=== PATIENT | male | born 1995 | race Hispanic/Latino ===

== ENCOUNTER 2017-09-01 22:15 | Observation (INO) | payer OTHER, SELFPAY ==
[2017-09-01 22:56] LABS: Absolute Lymphocytes (CBC) 3.2 K/uL (0.7-4.9); Absolute Monocytes 0.5 K/uL (0.1-1.3); Absolute Neutrophil 4.2 K/uL (1.8-8.0); Basophils % 0.4 % (0-1.3); Eosinophils % 3.4 % (0-4.4); Hematocrit 46.7 % (39.6-49.0); MCV 82.9 fL (80-100); MPV 7.7 fL (7.6-11.3); Monocytes % 6.1 % (3.3-12.3); RBC Red Blood Cell Count 5.64 M/uL (4.33-5.43)
[2017-09-01] MEDS ORDERED: ASPIRIN 81 MG CHEWABLE TABLET ONE (23:00)
[2017-09-01 23:03] LABS: Bicarbonate 26 mEq/L (21-31); Glucose Level 122 mg/dL (65-120); Potassium 3.4 mEq/L (3.6-5.0); Sodium Level 141 mEq/L (135-145)
[2017-09-01 23:09] LABS: ALT/SGPT 38 IU/L (10-60); AST/SGOT 25 IU/L (10-42); Albumin 4.9 g/dL (3.2-5.5); Alkaline Phosphatase 78 IU/L (42-121); BUN Blood Urea Nitrogen 13 mg/dL (6-20); Bilirubin Direct < 0.1 mg/dL (0-0.2); Bilirubin Total 0.5 mg/dL (0.3-1.2); Creatine Phosphokinase 119 IU/L (22-269); Glomerular Filtration Rate > 90 mL/min (=/>90); Magnesium 1.9 mg/dL (1.8-2.5); Protein, Total 7.7 g/dL (6.0-8.3)
[2017-09-01 23:12] LABS: CKMB Creatine Kinase MB 1.4 ng/ml (0.3-4.0)
--- NOTE | 2017-09-01 23:15 | EDPHYS ---
Physician Documentation [facility] Name: Yoan Nina Age: 22 yrs Sex: Male : 1995 Arrival Date: 09/01/2017 Time: 22:21 Bed 18 Private MD: Alvaro Hernandez HPI: 09/01 22:33 This 22 yrs old Male presents to ER via Ambulatory with complaints of Chest marcia Pain. 22:33 The patient or guardian reports chest pain that is located primarily in the anterior marcia chest wall, left. The pain does not radiate. Associated signs and symptoms: The patient has no apparent associated signs or symptoms. The chest pain is described as sharp. Duration: The patient or guardian reports multiple episodes, with no pattern. Modifying factors: The symptoms are alleviated by nothing. the symptoms are aggravated by nothing. Severity of pain: At its worst the pain was. The patient has not experienced similar symptoms in the past. Historical: - Allergies: 22:28 NKDA; fc - Home Meds: 22:28 None [Active]; fc - PMHx: 22:28 None; fc - PSHx: 22:28 None; fc - Immunization history:: Last tetanus immunization: unknown, Flu vaccine is not up to date. - Social history:: Smoking status: Patient uses tobacco products, denies chronic smoking, but will smoke occasionally. - Family history:: not pertinent. ROS: 22:33 Constitutional: Negative for fever, chills, and weight loss, Eyes: Negative for injury, marcia pain, redness, and discharge, ENT: Negative for injury, pain, and discharge, Neck: Negative for injury, pain, and swelling, Respiratory: Negative for shortness of breath, cough, wheezing, and pleuritic chest pain, Abdomen/GI: Negative for abdominal pain, nausea, vomiting, diarrhea, and constipation, Back: Negative for injury and pain, : Negative for injury, bleeding, discharge, and swelling, MS/Extremity: Negative for injury and deformity, Skin: Negative for injury, rash, and discoloration, Neuro: Negative for headache, weakness, numbness, tingling, and seizure, Psych: Negative for depression, anxiety, suicide ideation, homicidal ideation, and hallucinations, Allergy/Immunology: Negative for hives, rash, and allergies, Endocrine: Negative for neck swelling, polydipsia, polyuria, polyphagia, and marked weight changes, Hematologic/Lymphatic: Negative for swollen nodes, abnormal bleeding, and unusual bruising. 22:33 Cardiovascular: Positive for chest pain, of the anterior aspect of left upper chest. Exam: 22:33 Constitutional: This is a well developed, well nourished patient who is awake, alert, amrcia and in no acute distress. Head/Face: Normocephalic, atraumatic. Eyes: Pupils equal round and reactive to light, extra-ocular motions intact. Lids and lashes normal. Conjunctiva and sclera are non-icteric and not injected. Cornea within normal limits. Periorbital areas with no swelling, redness, or edema. ENT: Nares patent. No nasal discharge, no septal abnormalities noted. Tympanic membranes are normal and external auditory canals are clear. Oropharynx with no redness, swelling, or masses, exudates, or evidence of obstruction, uvula midline. Mucous membranes moist. Neck: Trachea midline, no thyromegaly or masses palpated, and no cervical lymphadenopathy. Supple, full range of motion without nuchal rigidity, or vertebral point tenderness. No Meningismus. Chest/axilla: Normal chest wall appearance and motion. Nontender with no deformity. No lesions are appreciated. Cardiovascular: Regular rate and rhythm with a normal S1 and S2. No gallops, murmurs, or rubs. Normal PMI, no JVD. No pulse deficits. Respiratory: Lungs have equal breath sounds bilaterally, clear to auscultation and percussion. No rales, rhonchi or wheezes noted. No increased work of breathing, no retractions or nasal flaring. Abdomen/GI: Soft, non-tender, with normal bowel sounds. No distension or tympany. No guarding or rebound. No evidence of tenderness throughout. Back: No spinal tenderness. No costovertebral tenderness. Full range of motion. Male : Normal genitalia with no discharge or lesions. Skin: Warm, dry with normal turgor. Normal color with no rashes, no lesions, and no evidence of cellulitis. MS/ Extremity: Pulses equal, no cyanosis. Neurovascular intact. Full, normal range of motion. Neuro: Awake and alert, GCS 15, oriented to person, place, time, and situation. Cranial nerves II-XII grossly intact. Motor strength 5/5 in all extremities. Sensory grossly intact. Cerebellar exam normal. Normal gait. Psych: Awake, alert, with orientation to person, place and time. Behavior, mood, and affect are within normal limits. 22:35 Musculoskeletal/extremity: DVT Exam: No signs of deep vein thrombosis. no pain, no marcia swelling, no tenderness, negative Homans' sign noted on exam, no appreciated bluish discoloration, no erythema, no increased warmth. Vital Signs: 22:28 Weight 83.91 kg (R); Height 5 ft. 5 in. (165.10 cm) (R); Pain 4/10; fc 22:30 BP 140 / 83; Pulse 93; Resp 16; Temp 98.3; Pulse Ox 100% on R/A; bp 23:04 BP 130 / 87; Pulse 84; Resp 18; Pulse Ox 97% ; bp 09/02 00:04 BP 123 / 74; Pulse 83; Resp 16; Pulse Ox 100% on R/A; Pain 0/10; bs1 01:21 BP 100 / 87; Pulse 70; Resp 16; Pulse Ox 100% on R/A; Pain 0/10; bs1 02:51 BP 114 / 54; Pulse 67; Resp 17; Pulse Ox 100% on R/A; Pain 0/10; bs1 09/01 22:28 Body Mass Index 30.79 (83.91 kg, 165.10 cm) [facility]: 09/01 22:23 Patient medically screened. [facility] 22:36 Data reviewed: vital signs, nurses notes, lab test result(s), EKG, radiologic studies, [facility] plain films. 09/01 22:32 Order name: Basic Metabolic Panel; Complete Time: 23:15 [facility] 09/01 22:32 Order name: BNP; Complete Time: 23:51 [facility] 09/01 22:32 Order name: CBC with Diff; Complete Time: 23:00 [facility] 09/01 22:32 Order name: Ckmb; Complete Time: 23:15 [facility] 09/01 22:32 Order name: CPK; Complete Time: 23:15 [facility] 09/01 22:32 Order name: LFT's; Complete Time: 23:15 [facility] 09/01 22:30 Order name: Chest Pa And Lat (2 Views) XRAY [facility] 09/01 22:32 Order name: Magnesium; Complete Time: 23:15 [facility] 09/01 22:32 Order name: Troponin (emerg Dept Use Only); Complete Time: 23:11 [facility] 09/01 22:58 Order name: UDS fc 09/01 23:21 Order name: Echo with Doppler EDMS 09/02 01:13 Order name: Urine Dipstick--Ancillary (enter results) 1 09/01 22:30 Order name: EKG; Complete Time: 22:30 [facility] 09/01 22:30 Order name: EKG - Nurse/Tech; Complete Time: 22:37 [facility] 09/01 22:32 Order name: Cardiac monitoring; Complete Time: 22:54 [facility] 09/01 22:32 Order name: IV Saline Lock; Complete Time: 22:54 [facility] 09/01 22:32 Order name: Labs collected and sent; Complete Time: 22:55 [facility] 09/01 22:32 Order name: O2 Per Protocol; Complete Time: 23:09 [facility] 09/01 22:32 Order name: O2 Sat Monitoring; Complete Time: 23:09 [facility] 09/01 22:32 Order name: Urine Dipstick-Ancillary (obtain specimen); Complete Time: 01:12 [facility] 09/01 23:20 Order name: CONS Physician Consult EDMS Administered Medications: 22:54 Drug: Aspirin 81 mg Route: PO; bs1 23:23 Follow up: Response: No adverse reaction bp 22:54 Drug: Aspirin 243 mg Route: PO; bp 09/02 02:53 Follow up: Response: No adverse reaction bp 09/01 23:30 Drug: Lovenox 1 mg/kg Route: Sub-Q; Site: right lower abdomen; bp 09/02 02:50 Follow up: Response: No adverse reaction bs1 09/01 23:30 Drug: Lopressor (metoprolol TARTRATE) 50 mg Route: PO; bp 09/02 02:50 Follow up: Response: No adverse reaction bs1 09/01 23:30 Drug: Colcrys 1.2 mg Route: PO; bp 09/02 02:49 Follow up: Response: No adverse reaction bs1 01:09 Drug: Colcrys 0.6 mg Route: PO; bs1 02:49 Follow up: Response: No adverse reaction bs1 Disposition: 09/01/17 23:15 Hospitalization ordered by Kj Suárez for Observation. Preliminary diagnosis are Other chest pain, Abnormal electrocardiogram [ECG] [EKG], Hypokalemia. - Bed requested for Telemetry/MedSurg (observation). - Status is Observation. bs1 - Condition is Stable. - Problem is new. - Symptoms have improved. UTI on Admission? No Signatures: Dispatcher [employer] EDMS Dana White RN RN Alvaro Salguero MD MD cha Chretien, Felicia, RN RN Wil Brown RN RN Lucie Meyer RN RN bs1
--- NOTE | 2017-09-01 23:15 | ER ---
Nurse's Notes [facility] Name: Yoan Nina Age: 22 yrs Sex: Male : 1995 Arrival Date: 09/01/2017 Time: 22:21 Bed 18 Private MD: Diagnosis: Other chest pain;Abnormal electrocardiogram [ECG] [EKG];Hypokalemia Presentation: 09/01 22:26 Presenting complaint: Patient states: that he is having chest pain that started 3 days fc ago. Got worse tonight. Also having shortness of breath and nausea but denies any vomiting. Transition of care: patient was not received from another setting of care. Onset of symptoms was August 29, 2017. Care prior to arrival: None. 22:26 Method Of Arrival: Ambulatory 22:26 Acuity: SIMONA 3 fc Historical: - Allergies: 22:28 NKDA; fc - Home Meds: 22:28 None [Active]; fc - PMHx: 22:28 None; fc - PSHx: 22:28 None; fc - Immunization history:: Last tetanus immunization: unknown, Flu vaccine is not up to date. - Social history:: Smoking status: Patient uses tobacco products, denies chronic smoking, but will smoke occasionally. - Family history:: not pertinent. Screenin:28 Abuse screen: Denies threats or abuse. Nutritional screening: No deficits noted. Tuberculosis screening: No symptoms or risk factors identified. Fall Risk None identified. Assessment: 22:30 General: Appears in no apparent distress. uncomfortable, Behavior is cooperative, bs1 appropriate for age, anxious. Pain: Complains of pain in chest and anterior aspect of left upper chest Pain does not radiate. Pain currently is 8 out of 10 on a pain scale. Quality of pain is described as aching, Pain began 2-3 days ago. Neuro: Level of Consciousness is awake, alert, obeys commands, Oriented to person, place, time, situation, Appropriate for age [employer] Operations Analyst are equal bilaterally Moves all extremities. Gait is steady, Speech is normal. Cardiovascular: Reports chest pain, Denies lightheadedness, nausea, palpitations, shortness of breath, Heart tones S1 S2 present Capillary refill < 3 seconds Patient's skin is warm and dry. Respiratory: Airway is patent Trachea midline Respiratory effort is even, unlabored, Respiratory pattern is regular, symmetrical, Breath sounds are clear bilaterally. GI: No deficits noted. No signs and/or symptoms were reported involving the gastrointestinal system. Abdomen is round Bowel sounds present X 4 quads. Abd is soft and non tender X 4 quads. : No deficits noted. No signs and/or symptoms were reported regarding the genitourinary system. EENT: No deficits noted. No signs and/or symptoms were reported regarding the EENT system. Derm: No deficits noted. No signs and/or symptoms reported regarding the dermatologic system. Musculoskeletal: Circulation, motion, and sensation intact. Capillary refill < 3 seconds, Range of motion: intact in all extremities. 23:30 Reassessment: Patient appears in no apparent distress at this time. Patient and/or bs1 family updated on plan of care and expected duration. Pain level reassessed. Patient is alert, oriented x 3, equal unlabored respirations, skin warm/dry/pink. Pending lab/xray results. 09/02 00:30 Reassessment: Patient appears in no apparent distress at this time. Patient and/or bs1 family updated on plan of care and expected duration. Pain level reassessed. Patient is alert, oriented x 3, equal unlabored respirations, skin warm/dry/pink. Pending admission to floor. 01:17 Reassessment: Patient and/or family updated on plan of care and expected duration. Pain bs1 level reassessed. Patient is alert, oriented x 3, equal unlabored respirations, skin warm/dry/pink. No further needs at this time. Resting in bed. No orders in [facility] at this time. 02:20 Reassessment: Patient and/or family updated on plan of care and expected duration. Pain bs1 level reassessed. Patient is alert, oriented x 3, equal unlabored respirations, skin warm/dry/pink. Vital Signs: 09/01 22:28 Weight 83.91 kg (R); Height 5 ft. 5 in. (165.10 cm) (R); Pain 4/10; fc 22:30 BP 140 / 83; Pulse 93; Resp 16; Temp 98.3; Pulse Ox 100% on R/A; bp 23:04 BP 130 / 87; Pulse 84; Resp 18; Pulse Ox 97% ; bp 09/02 00:04 BP 123 / 74; Pulse 83; Resp 16; Pulse Ox 100% on R/A; Pain 0/10; bs1 01:21 BP 100 / 87; Pulse 70; Resp 16; Pulse Ox 100% on R/A; Pain 0/10; bs1 02:51 BP 114 / 54; Pulse 67; Resp 17; Pulse Ox 100% on R/A; Pain 0/10; bs1 09/01 22:28 Body Mass Index 30.79 (83.91 kg, 165.10 cm) fc ED Course: 09/01 22:21 Patient arrived in ED. al2 22:23 Alvaro Brunson MD is Attending Physician. marcia 22:25 Lucie Meyer RN is Primary Nurse. bs1 22:27 Triage completed. fc 22:28 Arm band placed on right wrist. Patient placed in an exam room, on a stretcher. fc 22:28 Patient has correct armband on for positive identification. Placed in gown. Bed in low fc position. Call light in reach. environmental monitoring specialist on. Pulse ox on. NIBP on. 22:28 No provider procedures requiring assistance completed. Patient maintains SpO2 fc saturation greater than 95% on room air. 22:45 Patient moved to radiology via wheelchair. ml 22:45 Inserted saline lock: 20 gauge in left antecubital area, using aseptic technique. bs1 22:47 X-ray completed. Patient tolerated procedure well. ml 22:47 Patient moved back from radiology. ml 22:48 Chest Pa And Lat (2 Views) XRAY In Process Unspecified. EDMS 23:13 Kj Suárez MD is Hospitalizing Provider. [facility] 09/02 03:02 Patient admitted, IV remains in place. intact. bs1 Administered Medications: 09/01 22:54 Drug: Aspirin 81 mg Route: PO; bs1 23:23 Follow up: Response: No adverse reaction bp 22:54 Drug: Aspirin 243 mg Route: PO; bp 09/02 02:53 Follow up: Response: No adverse reaction bp 09/01 23:30 Drug: Lovenox 1 mg/kg Route: Sub-Q; Site: right lower abdomen; bp 09/02 02:50 Follow up: Response: No adverse reaction bs1 09/01 23:30 Drug: Lopressor (metoprolol TARTRATE) 50 mg Route: PO; bp 09/02 02:50 Follow up: Response: No adverse reaction bs1 09/01 23:30 Drug: Colcrys 1.2 mg Route: PO; bp 09/02 02:49 Follow up: Response: No adverse reaction bs1 01:09 Drug: Colcrys 0.6 mg Route: PO; bs1 02:49 Follow up: Response: No adverse reaction bs1 Outcome: 09/01 23:15 Decision to Hospitalize by Provider. marcia 09/02 03:01 Admitted to Tele accompanied by tech, via wheelchair, room 405, with chart, Report bs1 called to LUIS Gomez Condition: stable 03:17 Patient left the ED. bs1 Signatures: Dispatcher [employer] EDAR Alvaro Brunson MD MD cha Chretien, Felicia RN RN Bety Luna Brian, RN RN bp Salazar, Brittany, RN RN bs1 Mariana, Gilda baron
[2017-09-01] MEDS ORDERED: METOPROLOL TAR 50 MG TAB ONE (23:47)
[2017-09-01] MEDS ORDERED: ENOXAPARIN 80 MG/0.8 ML SQ ONE (23:48)
[2017-09-01] MEDS ORDERED: COLCHICINE 0.6 MG TAB ONE (23:48)
[2017-09-02] MEDS ORDERED: COLCHICINE 0.6 MG TAB ONE (01:28)
[2017-09-02 01:43] LABS: Barbiturates NEGATIVE; Benzodiazepines NEGATIVE; Cocaine NEGATIVE; METHAMPHETAM NEGATIVE; Opiates NEGATIVE; Phencyclidine NEGATIVE; THC Cannibis NEGATIVE
[2017-09-02] MEDS ORDERED: MORPHINE 4 MG/ML SYR IV PRN (02:43)
[2017-09-02] MEDS ORDERED: ACETAMINOPHEN 500 MG TAB PO PRN (02:43)
[2017-09-02 03:26] VITALS: O2SAT 100
[2017-09-02 04:26] VITALS: BMI 30.7
[2017-09-02 05:09] VITALS: BP 120/71; TEMP 98.6
[2017-09-02 05:09] LABS: Urine Blood NEGATIVE (NEG); Urine Glucose NEGATIVE (NEG); Urine Protein NEGATIVE (NEG)
[2017-09-02] MEDS ORDERED: INFLUENZA VACCINE (for 3y+) 0.5 ML DOSE IMVAC ONE (08:00)
--- NOTE | 2017-09-02 08:11 | RAD REPORT ---
EXAM DESCRIPTION: RAD - Chest Pa And Lat (2 Views) - 09/01/2017 10:49 pm CLINICAL HISTORY: Chest pain, shortness of breath COMPARISON: October 2015 TECHNIQUE: PA and lateral views of the chest were obtained. FINDINGS: The lungs are slightly underinflated. No mass, infiltrate or failure. Pneumonia at the rig ht base seen 2016 has cleared with no remnant scarring. Heart size is normal and central vasculatur e is within normal limits. No pleural effusion or pneumothorax seen. No acute bony finding noted. No aortic abnormality. IMPRESSION: No acute cardiopulmonary process. No significant change from comparison.
--- NOTE | 2017-09-02 08:33 | P.HP ---
Certification for Inpatient Patient admitted to: Observation With expected LOS: <2 Midnights Patient will require the following post-hospital care: None Practitioner: I am a practitioner with admitting privileges, knowledge of patient current condition, hospital course, and medical plan of care. Services: Services provided to patient in accordance with Admission requirements found in Title 42 Section 412.3 of the Code of Federal Regulations Patient History Date of Service: 09/02/17 Reason for admission: CHEST PAIN History of Present Illness: Patient is a 22-year-old gentleman who came into the hospital with chest discomfort. Pain was mainly in the sternal area with no radiation. Patient states he it happened after he laid down after eating some spaghetti. He has a history of reflux and occasionally has heartburn. The normally does not get this bad. The pain was worsening so he came into the hospital for further evaluation. In the ER his troponins have been negative. His EKG is unremarkable. Will admit him to the hospital for observation. Patient does states he does have some anxiety issues any also has heartburn. If his troponins are negative and EKGs remains unremarkable will have a follow-up as an outpatient and in the meantime treating with anxiolytics and PPI. Allergies No Known Allergies Allergy (Verified 09/02/17 03:59) Home Medications: Clonazepam [Klonopin] 0.5 mg PO BID PRN #15 tablet 09/02/17 Omeprazole Magnesium [Prilosec Otc] 20 mg PO DAILY #30 tablet. 09/02/17 - Past Medical/Surgical History Has patient received pneumonia vaccine in the past: No Diabetic: No -: Pneumonia -: GERD - Family History Father Medical History: Hypertension, Seizures Mother History Unknown: Yes - Social History Smoking Status: Current some day smoker Alcohol use: Yes CD- Drugs: No Caffeine use: Yes Place of Residence: Home Review of Systems 10-point ROS is otherwise unremarkable Physical Examination - Vital Signs Temperature: 98.6 F Blood Pressure: 120/71 Pulse: 78 Respirations: 20 Pulse Ox (%): 97 - Physical Exam General: Alert, In no apparent distress, Oriented x3 HEENT: Atraumatic, PERRLA, Mucous membr. moist/pink, EOMI, Sclerae nonicteric Neck: Supple, 2+ carotid pulse no bruit, No LAD, Without JVD or thyroid abnormality Respiratory: Clear to auscultation bilaterally, Normal air movement Cardiovascular: Regular rate/rhythm, Normal S1 S2 Gastrointestinal: Normal bowel sounds, Soft and benign, Non-distended, No tenderness Musculoskeletal: No clubbing, No swelling, No tenderness Integumentary: No rashes Neurological: Normal gait, Normal speech, Normal strength at 5/5 x4 extr, Normal tone, Sensation intact, Cranial nerves 3-12 intact, Normal affect Lymphatics: No axilla or inguinal lymphadenopathy - Studies Laboratory Data (last 24 hrs) 09/01/17 22:39: WBC 8.1, Hgb 15.8, Hct 46.7, Plt Count 275 09/01/17 22:39: B-Natriuretic Peptide < 10 09/01/17 22:39: Sodium 141, Potassium 3.4 L, BUN 13, Creatinine 0.91, Glucose 122 H, Magnesium 1.9, Total Bilirubin 0.5, AST 25, ALT 38, Alkaline Phosphatase 78 Assessment & Plan - Problems (Diagnosis) (1) Chest pain, rule out acute myocardial infarction Current Visit: Yes Status: Acute (2) Gastroesophageal reflux disease Current Visit: Yes Status: Acute (3) Anxiety Current Visit: Yes Status: Acute - Plan 1. Serial troponins and EKG 2. Ppi and anxiety medication 3. Outpatient follow with Cardiology 4. Refrain from tobacco use 5. Lipid profile in a.m. 6. Monitor hemodynamics and rhythm on telemetry Discharge Plan: Home Plan to discharge in: 24 Hours - Advance Directives Does patient have a Living Will: No Does patient have a Durable POA for Healthcare: No - Code Status/Comfort Care Code Status Assessed: Yes Code Status: Full Code Critical Care: No Time Spent Managing PTS Care (In Minutes): 50 Home Medications: Clonazepam [Klonopin] 0.5 mg PO BID PRN #15 tablet 09/02/17 Omeprazole Magnesium [Prilosec Otc] 20 mg PO DAILY #30 tablet. 09/02/17 Patient Discharge Instructions: OK TO DC IV AND DC HOME. FOLLOW-UP WITH PRIMARY CARE PROVIDER IN 1-2 WEEKS. FOLLOW-UP WITH CARDIOLOGY IN 1-2 WEEKS. RETURN TO THE ER IF SYMPTOMS WORSEN. CALL or TEXT DR. CHUN AT [phone] IF ANY QUESTIONS REGARDING HOSPITAL STAY. PLEASE CALL THE FLOOR AT [phone] IF ANY MEDICATION OR NURSING QUESTIONS. Diet: AHA Activity: Fall precautions Time spent managing pt's care (in minutes): 50
[2017-09-02] MEDS ORDERED: ASPIRIN EC 81 MG TAB PO SCH (09:00)
[2017-09-02] MEDS ORDERED: ENOXAPARIN 40 MG/0.4 ML SQ SCH (09:00)
[2017-09-02] MEDS ORDERED: METOPROLOL TAR 50 MG TAB PO SCH (09:00)
--- NOTE | 2017-09-04 12:57 | EKG ---
Test Date: 2017-09-01 Test Time: 22:31:22 Teacher Adult Education: [employer] MEASUREMENT RESULTS: Intervals: Rate: 82 WY: 138 QRSD: 96 QT: 334 QTc: 390 [place]: P: 44 WY: 138 QRS: 90 T: 34 INTERPRETIVE STATEMENTS: Normal sinus rhythm Rightward axis Possible right ventricular hypertrophy Abnormal ECG Compared to ECG 03/04/2004 16:48:00 Right-axis deviation now present Electronically Signed On 09-04-17 12:57:23 CDT by Germán Jackson
== END 2017-09-02 10:41 | disposition home or self-care (01) ==
LOC: ER 22:15 → ERHOLD 23:17 → 4TH 09-02 03:00
PROVIDERS: ADMIT Hospitalist; ATTEND Hospitalist
DX: R07.9 Chest pain, unspecified (principal); K21.9 Gastro-esophageal reflux disease without esophagitis; F41.9 Anxiety disorder, unspecified; F17.210 Nicotine dependence, cigarettes, uncomplicated
CPT/HCPCS: 36415; 71046; 80048; 80061; 80076; 80307; 81003; 82550; 82553; 83735; 83880; 84484; 85025; 93005; 96372; 99285; G0378; J1650

== ENCOUNTER 2022-10-12 21:58 | Emergency (ER) | payer OTHER ==
--- OUTSIDE RECORDS SUMMARY | 2022-10-12 22:01 | XMS REPORT | Continuity of Care Document ---
:1995 Author Organization [facility] t Address [address] [place] [id number] Care Team Providers Name Role Phone RADIOLOGY Attending Clinician Unavailable KISHA FLOR Attending Clinician Unavailable CATARINO SOARES Attending Clinician Unavailable CATARINO SOARES Admitting Clinician Unavailable Payers Payer Name Policy Type Policy Number Effective Date Expiration Date [employer]mo [employer] CHOICE POS [id number] 2018 00:00:00 II Problems This patient has no known problems. Allergies, Adverse Reactions, Alerts Allergy Allergy Status Severity Reaction(s) Onset Inactive Treating Comm ents Source Name Type Date Date Clinician NO KNOWN Drug Active [facility] Medications This patient has no known medications. Procedures This patient has no known procedures. Encounters Start End Encounter Admission Attending Care Care Encounter Source Date/Time Date/Time Type Type Clinicians Facility Department ID 2020-03-19 2020-03-19 Outpatient R RADIOLOGY [facility] [place] [id number] [facility] 00:00:00 00:00:00 [facility] 2019-12-17 2019-12-17 Outpatient R BASIA [facility] [place] [id number] [facility] 08:40:00 08:40:00 KISHA [facility] 2019-02-13 2019-02-13 Emergency X FANY TXWOLF ERT [id number] [facility] 16:33:16 21:06:00 CATARINO [facility] Results This patient has no known results.
[2022-10-12] MEDS ORDERED: ONDANSETRON 4 MG/2 ML VIAL ONE (23:05)
[2022-10-12] MEDS ORDERED: NA CHLORIDE 0.9% 1,000 ML ONE (23:06)
[2022-10-12] MEDS ORDERED: FAMOTIDINE 20 MG/2 ML VIAL IV ONE (23:06)
[2022-10-12 23:11] LABS: Absolute Lymphocytes (CBC) 0.6 K/uL (0.7-4.9); Hematocrit 50.4 % (39.6-49.0); Lymphocytes % 5.5 % (15.3-44.8); MCV 84.1 fL (80-100); MPV 7.1 fL (7.6-11.3); RBC Red Blood Cell Count 5.99 M/uL (4.33-5.43)
[2022-10-12 23:32] LABS: Albumin 4.4 g/dL (3.4-5.0); Bilirubin Total 0.9 mg/dL (0.2-1.0); Potassium 3.9 mEq/L (3.5-5.1); Protein, Total 8.1 g/dL (6.4-8.2)
[2022-10-12 23:39] LABS: Specific Gravity > 1.030 (1.005-1.030); Urine Bacteria None Seen /HPF (<20); Urine Bilirubin NEGATIVE (Negative); Urine Blood Trace (Negative); Urine Clarity Clear (Clear); Urine Color Yellow (Yellow); Urine Glucose NEGATIVE (Negative); Urine Mucus 1+ /HPF (None Seen); Urine Protein 1+ (Negative); Urine RBC <5 /HPF (None Seen); Urine Urobilinogen Normal (Normal)
[2022-10-12 23:54] LABS: Blood Morphology Comment NOT SEEN (NOT SEEN); Platelet Estimate ADEQ
[2022-10-13] MEDS ORDERED: metroNIDAZOLE 500 MG TABLET ONE (01:14)
[2022-10-13] MEDS ORDERED: CIPROFLOXACIN HCL 500 MG TAB ONE (01:14)
[2022-10-13] MEDS ORDERED: NA CHLORIDE 0.9% 1,000 ML ONE (01:14)
--- NOTE | 2022-10-13 01:35 | ER ---
Nurse's Notes [facility] Name: Yoan Nina Age: 27 yrs Sex: Male : 1995 Arrival Date: 10/12/2022 Time: 21:58 Bed 18 Private MD: Diagnosis: Infectious gastroenteritis and colitis, unspecified;Nausea with vomiting, unspecified Presentation: 10/12 22:09 Chief complaint: Patient states: "I don't know if I have a stomach bug or food as6 poisoning. I have had the runs all day and about 2 hours ago I started throwing up.". Coronavirus screen: At this time, the client does not indicate any symptoms associated with coronavirus-19. Ebola Screen: No symptoms or risks identified at this time. Initial Sepsis Screen: Does the patient meet any 2 criteria? HR > 90 bpm. Does the patient have a suspected source of infection? No. Patient's initial sepsis screen is negative. Risk Assessment: Do you want to hurt yourself or someone else? Patient reports no desire to harm self or others. Onset of symptoms was October 12, 2022. 22:09 Method Of Arrival: Ambulatory as6 22:09 Acuity: SIMONA 3 as6 Triage Assessment: 22:13 General: Appears in no apparent distress. Behavior is calm, cooperative. General: as6 Reports fever for feeling ill for. Pain: Complains of pain in generalized. GI: Reports diarrhea, nausea, vomiting. Historical: - Allergies: 22:13 NKDA; as6 - Home Meds: 22:13 None [Active]; as6 - PMHx: 22:13 None; as6 - PSHx: 22:13 None; as6 - Immunization history:: Adult Immunizations Client reports having NOT received the Covid vaccine. - Social history:: Smoking status: Patient reports the use of cigarette tobacco products, denies chronic smoking, but will smoke occasionally. Screenin:15 [facility] ED Fall Risk Assessment (Adult) History of falling in the last 3 months, ll3 including since admission No falls in past 3 months (0 pts) Confusion or Disorientation No (0 pts) Intoxicated or Sedated No (0 pts) Impaired Gait No (0 pts) Mobility Assist Device Used No (0 pt) Altered Elimination No (0 pt) Score/Fall Risk Level 0 - 2 = Low Risk Oriented to surroundings, Maintained a safe environment, Educated pt \\T\\ family on fall prevention, incl call for assistance when getting out of bed. Abuse screen: Denies threats or abuse. Denies injuries from another. Nutritional screening: No deficits noted. Tuberculosis screening: No symptoms or risk factors identified. Assessment: 23:13 General: Appears uncomfortable, Behavior is calm, cooperative. General: Reports fever ll3 for 0-12 hours. Pain: Complains of pain in Body aches, H/A Pain does not radiate. Pain currently is 3 out of 10 on a pain scale. Pain began 1 day ago. Is continuous. Neuro: Level of Consciousness is awake, alert, obeys commands, Oriented to person, place, time, situation. GI: Abdomen is round non-distended, Reports diarrhea, nausea, vomiting, since This morning. Derm: Skin is pink, warm \\T\\ dry. 10/13 01:47 Reassessment: Patient appears in no apparent distress at this time. Patient and/or jb4 family updated on plan of care and expected duration. Pain level reassessed. Patient is alert, oriented x 3, equal unlabored respirations, skin warm/dry/pink. Vital Signs: 10/12 22:09 BP 127 / 85; Pulse 121; Resp 18 S; Temp 100.1(O); Pulse Ox 97% on R/A; Weight 86.18 kg as6 (R); Height 5 ft. 4 in. (R); Pain 3/10; 23:13 BP 126 / 63; Pulse 107; Resp 17; Pulse Ox 95% on R/A; ll3 10/13 01:14 BP 114 / 67; Pulse 96; Resp 16; Pulse Ox 96% on R/A; ll3 10/12 22:09 Body Mass Index 32.61 (86.18 kg, 162.56 cm) as6 10/12 22:09 Pain Scale: Adult as6 ED Course: 10/12 22:04 Patient arrived in ED. ag3 22:13 Triage completed. as6 22:13 Arm band placed on. as6 22:14 Alvaro Franco PA is PHCP. cp 22:15 Alvaro Brunson MD is Attending Physician. cp 22:56 Initial lab(s) drawn, by me, sent to lab. Inserted saline lock: 20 gauge in left ll3 antecubital area, using aseptic technique. Blood collected. 22:57 COVID-19 SARS RT PCR Sent. ll3 22:57 Influenza Screen (a \\T\\ B) Sent. ll3 23:15 Patient has correct armband on for positive identification. Bed in low position. Call ll3 light in reach. Side rails up X 1. 05 00:15 Abdomen In Process Unspecified. EDMS 01:15 No provider procedures requiring assistance completed. ll3 01:32 Ramo Rao MD is Referral Physician. cp 01:47 IV discontinued, intact, bleeding controlled, No redness/swelling at site. Pressure jb4 dressing applied. Administered Medications: 10/12 23:08 Drug: NS 0.9% IV 1000 ml Route: IV; Rate: 1 bolus; Site: left antecubital; as6 23:08 Drug: Famotidine IVP 20 mg Route: IVP; Site: left antecubital; as6 23:08 Drug: Ondansetron IVP 4 mg Route: IVP; Site: left antecubital; as6 10/13 01:27 Drug: metroNIDAZOLE PO 500 mg Route: PO; ll3 01:27 Drug: Ciprofloxacin PO 500 mg Route: PO; ll3 01:27 Drug: NS 0.9% IV 1000 ml Route: IV; Rate: 1 bolus; Site: left antecubital; ll3 Medication: 01:15 VIS not applicable for this client. ll3 Outcome: 01:34 Discharge ordered by . cp 01:47 Discharged to home ambulatory. jb4 01:47 Condition: stable 01:47 Discharge instructions given to patient, Instructed on discharge instructions, follow up and referral plans. medication usage, Demonstrated understanding of instructions, follow-up care, medications, Prescriptions given X 4. 01:48 Patient left the ED. jb4 Signatures: Dispatcher [employer] EDCT Alvaro Franco PA PA cp Jose Dorado RN RN jb4 Shonda Saleh3 Parminder Nguyen RN RN as6 Shant Yang RN RN ll3
--- NOTE | 2022-10-13 01:35 | EDPHYS ---
Physician Documentation [facility] Name: Yoan Nina Age: 27 yrs Sex: Male : 1995 Arrival Date: 10/12/2022 Time: 21:58 Bed 18 Private MD: ED Physician Alvaro rBunson HPI: 10/12 23:00 This 27 yrs old Male presents to ER via Ambulatory with complaints of cp Diarrhea, Fever, Headache. 23:00 The patient presents to the emergency department with nausea, that is moderate, cp vomiting, that is intermittent, diarrhea, that is continuous. Onset: The symptoms/episode began/occurred this morning. Possible causes: unknown. Associated signs and symptoms: Pertinent positives: abdominal pain, fever, Pertinent negatives: constipation, dysuria, GI bleeding. Severity of symptoms: in the emergency department the symptoms are unchanged despite home interventions. Historical: - Allergies: 22:13 NKDA; as6 - Home Meds: 22:13 None [Active]; as6 - PMHx: 22:13 None; as6 - PSHx: 22:13 None; as6 - Immunization history:: Adult Immunizations Client reports having NOT received the Covid vaccine. - Social history:: Smoking status: Patient reports the use of cigarette tobacco products, denies chronic smoking, but will smoke occasionally. ROS: 23:05 Constitutional: Positive for body aches, fever, poor PO intake. cp 23:05 Eyes: Negative for injury, pain, redness, and discharge. cp 23:05 ENT: Negative for drainage from ear(s), ear pain, sore throat, difficulty swallowing, difficulty handling secretions. 23:05 Cardiovascular: Negative for chest pain. 23:05 Respiratory: Negative for cough, shortness of breath, wheezing. 23:05 Abdomen/GI: Positive for abdominal pain, nausea, vomiting, and diarrhea, Negative for constipation, black/tarry stool, rectal bleeding. 23:05 : Negative for urinary symptoms. 23:05 All other systems are negative. Exam: 23:05 Head/Face: Normocephalic, atraumatic. cp 23:05 Constitutional: The patient appears in no acute distress, alert, awake, non-toxic, well developed, well nourished, uncomfortable. 23:05 Eyes: Periorbital structures: appear normal, Conjunctiva: normal, no exudate, no injection, Sclera: no appreciated abnormality, Lids and lashes: appear normal, bilaterally. 23:05 ENT: External ear(s): are unremarkable, Nose: is normal, Mouth: Lips: moist, Oral mucosa: pink and intact, moist, Posterior pharynx: is normal, airway is patent, no erythema, no exudate. 23:05 Chest/axilla: Inspection: normal. 23:05 Cardiovascular: Rate: tachycardic, Rhythm: regular. 23:05 Respiratory: the patient does not display signs of respiratory distress, Respirations: normal, no use of accessory muscles, no retractions, labored breathing, is not present, Breath sounds: are clear throughout, no decreased breath sounds, no stridor, no wheezing. 23:05 Abdomen/GI: Inspection: abdomen appears normal, Bowel sounds: active, all quadrants, Palpation: soft, in all quadrants, mild abdominal tenderness, in all quadrants, rebound tenderness, is not appreciated, involuntary guarding, is not appreciated. 23:05 Back: pain, is absent, ROM is normal. 23:05 Neuro: Orientation: to person, place \T\ time. Mentation: is normal, Motor: moves all fours, strength is normal. Vital Signs: 22:09 BP 127 / 85; Pulse 121; Resp 18 S; Temp 100.1(O); Pulse Ox 97% on R/A; Weight 86.18 kg as6 (R); Height 5 ft. 4 in. (R); Pain 3/10; 23:13 BP 126 / 63; Pulse 107; Resp 17; Pulse Ox 95% on R/A; ll3 10/13 01:14 BP 114 / 67; Pulse 96; Resp 16; Pulse Ox 96% on R/A; ll3 10/12 22:09 Body Mass Index 32.61 (86.18 kg, 162.56 cm) as6 10/12 22:09 Pain Scale: Adult as6 MDM: 10/12 22:20 Patient medically screened. [facility] 10/13 01:34 Data reviewed: vital signs, nurses notes, lab test result(s), radiologic studies, CT cp scan. 01:34 Differential diagnosis: gastritis, cholecystitis, pancreatitis, appendicitis, viral cp gastroenteritis, gastroenteritis. Consideration of Admission/Observation Escalation of care including admission/observation considered. I considered the following discharge prescriptions or medication management in the emergency department Medications were administered in the Emergency Department. See MAR. Counseling: I had a detailed discussion with the patient and/or guardian regarding: the historical points, exam findings, and any diagnostic results supporting the discharge/admit diagnosis, lab results, to return to the emergency department if symptoms worsen or persist or if there are any questions or concerns that arise at home. Response to treatment: the patient's symptoms have markedly improved after treatment, and as a result, I will discharge patient. ED course: VSS. Patient non-toxic and tolerating po fluids. Will discharge to home for continued monitoring. 10/12 22:34 Order name: CBC with Diff; Complete Time: 00:57 cp 10/12 22:34 Order name: CMP; Complete Time: 23:37 cp 10/12 22:34 Order name: Lipase; Complete Time: 23:37 cp 10/12 22:34 Order name: Urinalysis w/ reflexes; Complete Time: 00:57 cp 10/12 22:39 Order name: COVID-19 SARS RT PCR; Complete Time: 00:57 cp 10/12 22:39 Order name: Influenza Screen (a \T\ B); Complete Time: 00:57 cp 10/12 23:26 Order name: Manual Differential; Complete Time: 00:57 EDMS 10/13 01:01 Order name: Ova And Parasites cp 10/13 01:01 Order name: Rotavirus Antigen cp 10/13 01:01 Order name: Stool Culture cp 10/13 01:01 Order name: CDIFF cp 10/12 23:45 Order name: Abdomen EDMS 10/12 22:34 Order name: IV Saline Lock; Complete Time: 22:57 cp 10/12 22:34 Order name: Labs collected and sent; Complete Time: 22:57 cp 10/13 01:01 Order name: Misc. Order: please obtain stool sample for testing before giving cp antibiotics if possible; Complete Time: :10/13 01:01 Order name: PO challenge; Complete Time: 01:17 cp Administered Medications: 10/12 23:08 Drug: NS 0.9% IV 1000 ml Route: IV; Rate: 1 bolus; Site: left antecubital; as6 23:08 Drug: Famotidine IVP 20 mg Route: IVP; Site: left antecubital; as6 23:08 Drug: Ondansetron IVP 4 mg Route: IVP; Site: left antecubital; as6 10/13 01:27 Drug: metroNIDAZOLE PO 500 mg Route: PO; ll3 01:27 Drug: Ciprofloxacin PO 500 mg Route: PO; ll3 01:27 Drug: NS 0.9% IV 1000 ml Route: IV; Rate: 1 bolus; Site: left antecubital; ll3 Disposition Summary: 10/13/22 01:34 Discharge Ordered Location: Home cp Problem: new cp Symptoms: have improved cp Condition: Stable cp Diagnosis - Infectious gastroenteritis and colitis, unspecified cp - Nausea with vomiting, unspecified cp Followup: cp - With: Ramo Rao MD - When: 2 - 3 days - Reason: symptoms continue Discharge Instructions: - Discharge Summary Sheet cp - Nausea and Vomiting, Adult cp - Colitis cp Forms: - Medication Reconciliation Form cp - Thank You Letter cp - Antibiotic Education cp - Prescription Opioid Use cp Prescriptions: - Cipro 500 mg Oral Tablet - take 1 tablet by ORAL route every 12 hours for 10 days; 20 tablet; Refills: 0, cp Product Selection Permitted - Zofran 4 mg Oral Tablet - take 1 tablet by ORAL route every 12 hours As needed; 20 tablet; Refills: 0, cp Product Selection Permitted - Metronidazole 500 mg Oral Tablet - take 1 tablet by ORAL route every 8 hours; 30 tablet; Refills: 0, Product cp Selection Permitted - dicyclomine 20 mg Oral Tablet - take 1 tablet by ORAL route 3 times per day; 20 tablet; Refills: 0, Product cp Selection Permitted Signatures: Dispatcher [employer] Alvaro Lopez MD MD cha Page, Corey, PA PA cp Parminder Nguyen RN RN as6 Shant Yang RN RN ll3 Corrections: (The following items were deleted from the chart) 00:08 10/12 23:58 Abdomen Pelvis W Con+CT.RAD.BRZ ordered. JOSSELINE MANJARREZ
[2022-10-13 05:01] LABS: C.diff Antigen/Toxin Ag neg : Tox neg (NEG : NEG)
[2022-10-13 07:44] VITALS: TEMP 100.1
[2022-10-13 07:47] VITALS: BP 114/67; O2SAT 96
--- NOTE | 2022-10-13 12:32 | RAD REPORT ---
EXAM DESCRIPTION: CT - Abdomen Pelvis W Contrast - 10/13/2022 6:31 am CLINICAL HISTORY: N/V/D; ABD PAIN. COMPARISON: None. TECHNIQUE: CT of the abdomen and pelvis was performed following intravenous administration of iodina dianelys contrast. Oral contrast was not administered. Axial, coronal, and sagittal soft tissue window rec onstructions were created and sent to PACS. This exam was performed according to our departmental dose-optimization program, which includes autom ated exposure control, adjustment of the mA and/or kV according to patient size and/or use of iterati ve reconstruction technique. FINDINGS: Thoracic: No significant abnormality. Hepatobiliary: Mild diffuse hepatic steatosis. Hepatomegaly, measuring 18 cm in length. No concerning hepatic lesion identified. The portal veins are patent. The gallbladder is unremarkable. No biliary ductal dilatation. Pancreas: Unremarkable. Spleen: Unremarkable. Gastrointestinal: Diffuse mildly prominent fluid-filled loops of small bowel in a nonobstructive marcel kvng. Small to moderate amount of liquid stool throughout the colon and rectum. Moderately distended s tomach with fluid. No evidence of bowel obstruction or perienteric inflammation. The appendix is norm al. Adrenals: No abnormality identified in either adrenal gland. Renal: No concerning parenchymal abnormality in either kidney. No hydronephrosis or urolithiasis. Bladder/Reproductive: Unremarkable appearance of the urinary bladder by CT technique. Vascular/Lymphatics: Mildly prominent mesenteric lymph nodes. Abdominal aorta is normal in caliber. Musculoskeletal: No concerning osseous lesion identified. Fluid / peritoneum: No significant free fluid. No free intraperitoneal air identified. IMPRESSION Findings suggestive of enteritis and colitis/diarrhea. Electronically signed by: Zaira Shepard MD 10/13/2022 12:34 AM CDT Due to temporary technical issues with the PACS/Fluency reporting system, reports are being signed by the in house radiologists without review as a courtesy to insure prompt reporting. The interpreting radiologist is fully responsible for the content of the report.
== END 2022-10-13 01:48 | disposition home or self-care (01) ==
LOC: ER 21:58
DX: A09 Infectious gastroenteritis and colitis, unspecified (principal); Z20.822 Contact with and (suspected) exposure to COVID-19; F17.210 Nicotine dependence, cigarettes, uncomplicated
CPT/HCPCS: 87045; 85025; 81001; 36415; 87177; 87046; 87209; 87324; 83690; 80053; 87425; 87804 ×2; 74177; U0003; Q9967; J2405; J7030 ×2

== ENCOUNTER 2023-05-08 15:04 | Emergency (ER) | payer OTHER ==
--- OUTSIDE RECORDS SUMMARY | 2023-05-08 16:02 | XMS REPORT | Continuity of Care Document ---
:1995 Author Organization [facility] t Address [address] [place] [address] [place] [id number] Care Team Providers Name Role Phone Pcp, Patient Does Not Have A Primary Care Physician +[id number] RADIOLOGY Attending Clinician Unavailable Doctor Unassigned, [place] Attending Clinician Unavailable KISHA FLOR Attending Clinician Unavailable CATARINO SOARES Attending Clinician Unavailable CATARINO SOARES Admitting Clinician Unavailable Payers Payer Name Policy Type Policy Number Effective Date Expiration Date Cosmo [employer] CHOICE POS [id number] 2018 00:00:00 II Problems This patient has no known problems. Allergies, Adverse Reactions, Alerts Allergy Allergy Status Severity Reaction(s) Onset Inactive Treating Comm ents Source Name Type Date Date Clinician NO KNOWN Drug Active [facility] ALLERGIE Class ity of [facility] Social History Social Habit Start Date Stop Date Quantity Comments Source Sexual orientation [facility] Exposure to 2020-02-18 2020-03-19 Not sure [facility] SARS-CoV-2 (event) 00:00:00 16:10:00 Medica l Branch Sex Assigned [birth year] [facility] 00:00:00 00:00:00 Medical Branch Smoking Status Start Date Stop Date Source Tobacco smoking consumption [facility] unknown Branch Medications Ordered Filled Start Stop Current Ordering Indication Dosage Frequency Signature Comments Components Source Medication Medication Date Date Medication? Clinician (SIG) Name Name dicyclomine 2019-0 Yes [id number] 20mg Take 1 [facility] (BENTYL) 20 9-10 tablet by ity of mg tablet 00:00: mouth 4 [place] 00 (four) [facility] daily as needed for Abdominal pain. Procedures This patient has no known procedures. Encounters Start End Encounter Admission Attending Care Care Encounter Source Date/Time Date/Time Type Type Clinicians Facility Department ID 2020-03-19 2020-03-19 Outpatient R RADIOLOGY [facility] [id number] [facility] 00:00:00 00:00:00 ity of [facility] 2019-12-19 2019-12-19 Patient Doctor LOC [id number] [facility] 00:00:00 00:00:00 Secure Msg Unassigned, LUTHER [id number] ity of [place] [facility] [id number] Fred as [id number] [address] 2019-12-17 2019-12-17 Outpatient R BASIA, [facility] [id number] [facility] 08:40:00 08:40:00 KISHA tom [facility] 2019-02-13 2019-02-13 Emergency X FANY, [facility] ERT [id number] [facility] 16:33:16 21:06:00 CATARINO tom [facility] Results This patient has no known results.
[2023-05-08 16:07] LABS: SARS-CoV-2 Antigen Rapid Res Negative (Negative)
--- NOTE | 2023-05-08 16:19 | ER ---
Nurse's Notes [facility] Name: Yoan Nina Age: 28 yrs Sex: Male : 1995 Arrival Date: 05/08/2023 Time: 15:04 Bed IW3 Private MD: Diagnosis: Influenza due to identified novel influenza A virus with other respiratory manifestations Presentation: 05/08 15:38 Chief complaint: Cough, body aches, fever, chills, headache, diarrhea x 2-3 days. hb Family member has RSV and recently had flu. Coronavirus screen: Client presents with at least one sign or symptom that may indicate coronavirus-19. Provider contacted for isolation considerations. Ebola Screen: No symptoms or risks identified at this time. Initial Sepsis Screen: Does the patient meet any 2 criteria? No. Patient's initial sepsis screen is negative. Does the patient have a suspected source of infection? No. Patient's initial sepsis screen is negative. Risk Assessment: Do you want to hurt yourself or someone else? Patient reports no desire to harm self or others. Onset of symptoms was May 06, 2023. 15:38 Method Of Arrival: Ambulatory hb 15:38 Acuity: SIMONA 4 hb Historical: - Allergies: 15:41 NKDA; hb - Home Meds: 15:41 None [Active]; hb - PMHx: 15:41 None; hb - PSHx: 15:41 None; hb - Immunization history:: Adult Immunizations up to date. - Social history:: Smoking status: Patient denies any tobacco usage or history of. Vital Signs: 15:38 BP 142 / 87; Pulse 119; Resp 18; Temp 99.7(TE); Pulse Ox 100% on R/A; Weight 86.18 kg; hb Height 5 ft. 3 in. ; Pain 4/10; 15:38 Body Mass Index 33.66 (86.18 kg, 160.02 cm) hb 15:38 Pain Scale: Adult hb ED Course: 15:06 Patient arrived in ED. rg4 15:06 [facility] jh7 15:06 Alvaro Brunson MD is Attending Physician. 7 15:41 Triage completed. hb 15:42 Arm band placed on. hb 15:44 Flu Sent. hb 15:44 SARS RAPID Sent. hb Administered Medications: 16:20 Drug: Ibuprofen PO 600 mg PO once Route: PO; Outcome: 16:19 Discharge ordered by MD. pa 16:54 Patient left the ED. Signatures: Wendy Soares RN RN Berkley Charles rg4 Joan Dickson, [employer]PER[employer] GLENIS 7
--- NOTE | 2023-05-08 16:19 | EDPHYS ---
Physician Documentation [facility] Name: Yoan Nina Age: 28 yrs Sex: Male : 1995 Arrival Date: 05/08/2023 Time: 15:04 Bed IW3 Private MD: ED Physician Alvaro Brunson HPI: 05/08 15:06 This 28 yrs old Male presents to ER via Unassigned with complaints of Flu jh7 Symptoms. 15:06 Onset: The symptoms/episode began/occurred yesterday. Associated signs and symptoms: jh7 Pertinent positives: congestion, fever, sneezing, Pertinent negatives: abdominal pain, chest pain, shortness of breath, sore throat, vomiting. Historical: - Allergies: 15:41 NKDA; hb - Home Meds: 15:41 None [Active]; hb - PMHx: 15:41 None; hb - PSHx: 15:41 None; hb - Immunization history:: Adult Immunizations up to date. - Social history:: Smoking status: Patient denies any tobacco usage or history of. ROS: 15:06 Eyes: Negative for injury, pain, redness, and discharge, Neck: Negative for injury, jh7 pain, and swelling, Cardiovascular: Negative for chest pain, palpitations, and edema, Abdomen/GI: Negative for abdominal pain, nausea, vomiting, diarrhea, and constipation, Back: Negative for injury and pain, MS/Extremity: Negative for injury and deformity, Skin: Negative for injury, rash, and discoloration, Neuro: Negative for headache, weakness, numbness, tingling, and seizure, 15:06 Constitutional: Positive for body aches, chills, fever, 15:06 ENT: Positive for sinus congestion, 15:06 Respiratory: Positive for cough, 15:06 All other systems are negative, Exam: 15:06 Constitutional: This is a well developed, well nourished patient who is awake, alert, jh7 and in no acute distress. Head/Face: Normocephalic, atraumatic. Neck: Trachea midline, no thyromegaly or masses palpated, and no cervical lymphadenopathy. Supple, full range of motion without nuchal rigidity, or vertebral point tenderness. No Meningismus. Cardiovascular: Regular rate and rhythm with a normal S1 and S2. No gallops, murmurs, or rubs. Normal PMI, no JVD. No pulse deficits. Respiratory: Lungs have equal breath sounds bilaterally, clear to auscultation and percussion. No rales, rhonchi or wheezes noted. No increased work of breathing, no retractions or nasal flaring. Abdomen/GI: Soft, non-tender, with normal bowel sounds. No distension or tympany. No guarding or rebound. No evidence of tenderness throughout. Back: No spinal tenderness. No costovertebral tenderness. Full range of motion. Skin: Warm, dry with normal turgor. Normal color with no rashes, no lesions, and no evidence of cellulitis. MS/ Extremity: Pulses equal, no cyanosis. Neurovascular intact. Full, normal range of motion. Neuro: Awake and alert, GCS 15, oriented to person, place, time, and situation. Motor strength 5/5 in all extremities. Sensory grossly intact. Normal gait. 15:06 ENT: TM's: are normal, Nose: nasal drainage, that is minimal, and is seen coming from both nares, that is clear, Vital Signs: 15:38 BP 142 / 87; Pulse 119; Resp 18; Temp 99.7(TE); Pulse Ox 100% on R/A; Weight 86.18 kg; hb Height 5 ft. 3 in. ; Pain 4/10; 15:38 Body Mass Index 33.66 (86.18 kg, 160.02 cm) hb 15:38 Pain Scale: Adult hb MDM: 15:06 Patient medically screened. [facility] 16:22 Differential diagnosis: viral Infection, URI. Data reviewed: vital signs, nurses notes. [facility] Counseling: I had a detailed discussion with the patient and/or guardian regarding the historical points, exam findings, and any diagnostic results supporting the discharge/admit diagnosis, to return to the emergency department if symptoms worsen or persist or if there are any questions or concerns that arise at home. 05/08 15:29 Order name: Flu; Complete Time: 16:[address] [facility] 05/08 15:29 Order name: SARS RAPID; Complete Time: 16:[address] [facility] Administered Medications: 16:20 Drug: Ibuprofen PO 600 mg PO once Route: PO; hb Disposition Summary: 05/08/23 16:19 Discharge Ordered Notes: Location: Home [facility] Problem: new [facility] Symptoms: are unchanged jh7 Condition: Stable [facility] Diagnosis - Influenza due to identified novel influenza A virus with other respiratory [facility] manifestations Followup: [facility] - With: Private Physician - When: 2 - 3 days - Reason: Recheck today's complaints Discharge Instructions: - Discharge Summary Sheet [facility] - Influenza, Adult [facility] Forms: - Medication Reconciliation Form [facility] - Thank You Letter [facility] - Patient Portal Instructions [facility] - Leadership Thank You Letter [facility] Prescriptions: - Tamiflu 75 mg Oral Capsule - take 1 capsule ORAL route every 12 hours for 5 days; 10 capsule; Refills: 0, jh7 Product Selection Permitted Signatures: Dispatcher [employer] EDMS Wendy Soares RN RN Joan Morgan, CASINO ASSISTANT MANAGER CASINO ASSISTANT MANAGER [facility] Corrections: (The following items were deleted from the chart) 17:26 15:06 This 28 yrs old Male presents to ER via Unassigned with complaints of 7 Flu Symptoms. [facility]
[2023-05-08] MEDS ORDERED: IBUPROFEN 200 MG TAB PO ONE (16:30)
[2023-05-08 17:52] VITALS: BP 142/87; TEMP 99.7; O2SAT 100
== END 2023-05-08 16:54 | disposition home or self-care (01) ==
LOC: ER 15:04
DX: J10.1 Influenza due to other identified influenza virus with other respiratory manifestations (principal); Z11.52 Encounter for screening for COVID-19
CPT/HCPCS: 36415; 87804; 87811; 99283